=== PATIENT | female | born 1970 | race Caucasian/White ===

== ENCOUNTER 2025-06-16 08:17 | Outpatient (CLI) | payer OTHER | END 2025-06-16 08:18 | disposition home or self-care (01) | LOC: CSHCP 08:17 | PROVIDERS: ATTEND Family Medicine | DX: R06.02 Shortness of breath (principal); J44.9 Chronic obstructive pulmonary disease, unspecified | CPT/HCPCS: 94060; 94664; 94729; 94760 ==